=== PATIENT | female | born 1960 | race Caucasian/White ===

== ENCOUNTER 2022-09-29 12:42 | Emergency (ER) | payer BC, SELFPAY ==
[2022-09-29 12:43] VITALS: BP 146/84; PULSE 90; RESP 18; TEMP 36.3; O2SAT 100; BMI 21.9
--- NOTE | 2022-09-29 13:21 | CT_ITS ---
STUDY: CT ABDOMEN AND PELVIS WITH CONTRAST REASON FOR EXAM: Female, 62 years old. One week history of worsening left lower quadrant pain. RADIATION DOSAGE (If Supplied By Facility): CTDIvol = ( 9.20 ) mGy, DLP = ( 402.16 ) mGycm TECHNIQUE: Transaxial images were obtained from the dome of the diaphragm to the symphysis pubis without oral contrast. IV 100mL Isovue-300 was administered. Sagittal and coronal images were reconstructed. Individualized dose optimization techniques were used for this CT. COMPARISON: None. FINDINGS: Mild increased linear markings at the left lung base suggestive of linear atelectasis or scarring. The visualized portions of the heart are within normal limits. Normal liver. The patient is status post cholecystectomy. Normal spleen. Normal pancreas. Normal bilateral adrenal glands. There is a 1.4 cm cyst in the inferior lateral aspect of the right kidney. There is a 3.4 cm x 1.9 sinus septate cyst in the superior midportion of the left kidney. There is a small hiatal hernia. Normal small intestine. There are multiple colonic diverticula consistent with diverticulosis. There is non-visualization of the appendix. Normal abdominal aorta. Normal inferior vena cava. Normal retroperitoneum. Normal urinary bladder. There is absence of the uterus consistent with a prior hysterectomy. There is a small umbilical hernia containing fat. Normal osseous structures. CT/Abdomen/Pelvis W IV Cont ONLY IMPRESSION: Status post cholecystectomy and hysterectomy. Sigmoid diverticulosis without radiographic abnormality of diverticulitis at this time. Small bilateral renal cysts. Electronically Signed: Weston Naqvi MD at 14:31 EDT ,
--- NOTE | 2022-09-29 13:24 | ED.VIS.GI ---
HPI HPI - GI History of Present Illness Chief Complaint: Abd Pain Informant: patient Narrative Narrative: Patient presents with abdominal pain. Patient states that last week she had some mild discomfort in the lower abdomen off and on. It was nonspecific and variable and she did not think much about it. Tuesday she had a bowel movement that had a little bit of blood in it. She had a few specks in the stool and the water was slightly pink. This has not recurred. She is not on blood thinners. But she has noticed a little bit more discomfort at the left lower quadrant mostly when she is bending or moving. She denies nausea vomiting fevers or chills. She denies urinary symptoms. Her last colonoscopy was about a year ago that did show diverticular disease and she was treated once for diverticulitis. She had an upper endoscopy just within the last week that showed some mild gastritis and hiatal hernia and she was started on Pepcid. She is not having any upper abdominal pain at all. Prior surgeries include hysterectomy and cholecystectomy. [facility] Medical History Asthma Diverticulosis Essential hypertension GERD (gastroesophageal reflux disease) Pure hypercholesterolemia Tinnitus Varicose vein of leg Home Medications Gómez's wort 300 mg tablet 600 mg PO DAILY 06/08/22 [History Last Taken Unknown] albuterol sulfate 90 mcg/actuation aerosol inhaler (ProAir HFA) 2 puff inhalation Q6H PRN 06/08/22 [History Last Taken Unknown] calcium carbonate 333 mg-magnesium oxide 133 mg-zinc gluc 5 mg tablet 3 tab PO DAILY 06/08/22 [History Last Taken Unknown] cranberry 400 mg capsule 400 mg PO DAILY 06/08/22 [History Last Taken Unknown] famotidine 10 mg tablet (Pepcid AC) 10 mg PO BID PRN 06/08/22 [History Last Taken Unknown] lactobacillus combination no.9 4 billion cell capsule (Adult 50 Plus Probiotic) 4,000 mmu cells PO DAILY 06/08/22 [History Last Taken Unknown] loratadine 10 mg tablet (Claritin) 10 mg PO DAILY 06/08/22 [History Last Taken Unknown] ascorbic acid (vitamin C) 500 mg tablet 500 mg PO DAILY 06/10/22 [History Last Taken Unknown] budesonide-formoterol HFA 80 mcg-4.5 mcg/actuation aerosol inhaler (Symbicort) 2 puff inhalation BID PRN 06/10/22 [History Last Taken Unknown] zinc gluconate 50 mg tablet 50 mg PO DAILY 06/10/22 [History Last Taken Unknown] metoprolol succinate 25 mg tablet,extended release 24 hr 12.5 mg PO .COMPLEX #90 tabs 07/30/22 [Rx Last Taken Unknown] Allergy/AdvReac Type Severity Reaction Status Date / Time esomeprazole [From Nexium] Allergy Unknown Hives Verified 09/29/22 13:06 Sulfa (Sulfonamide Allergy Rash Verified 09/29/22 13:06 Antibiotics) Family History Father CAD (coronary artery disease) Hypertension Mother Hypertension Brother Hypertension Sister Diabetes Hypertension Surgical History History of cholecystectomy History of hysterectomy with bilateral oophorectomy History of varicose vein ligation and stripping Social History Smoking Status: Never smoker alcohol intake: never substance use type: does not use caffeine: Yes Type: coffee Number of servings: 1 ROS ROS ED ROS Narrative A complete review of systems was performed and is negative except as documented in the history of present illness. Some specific details below. Constitutional: No recent fevers or chills. EYE: No visual complaints or pain. ENT: No difficulty swallowing. No swelling. No pain. CV: No chest pain or palpitations. Respiratory: No dyspnea. No hemoptysis. No difficulty taking breaths. GI: Please see history of present illness. She is eating and drinking well without nausea or vomiting. : No frequency dysuria or hematuria. Musculoskeletal: No recent trauma. No pains. No back or flank pains. Skin: No rash. Nondiaphoretic. Neuro: No weakness or numbness. Endocrine: No polyuria or polydipsia. EXAM Physical Exam Narrative Exam Narrative: CONSTITUTIONAL: Patient is nontoxic in appearance. The patient looks comfortable. HEENT: No notable trauma. Mucous membranes moist. No sinus tenderness. No indication of pain with swallowing. EYES: No conjunctival injection. No proptosis. CARDIOVASCULAR: Regular rate. Regular rhythm. No notable murmur. No JVD. RESPIRATORY: No respiratory distress. Breathing is unlabored. No wheezes. No rhonchi. No rales. No pain with a deep breath. GASTROINTESTINAL: Not distended. Bowel sounds are normal. There is some mild left lower quadrant tenderness but no mass and no guarding. No rebound. No bruit. GENITOURINARY: No tenderness over the bladder. No CVA tenderness. MUSCULOSKELETAL: Atraumatic. No peripheral edema. No cord. NEUROLOGICAL: Patient is alert and appropriate. No focal deficit noted. SKIN: No noted rashes. No diaphoresis. PSYCHIATRIC: Patient is calm. Mood is appropriate. Const Vital Signs: 09/29/22 12:43 Temperature 97.3 F L Temperature Source Temporal Pulse Rate 90 Respiratory Rate 18 Blood Pressure 146/84 H Blood Pressure Mean 104 Pulse Ox 100 Oxygen Delivery Method Room Air MDM MDM MDM Narrative Medical decision making narrative: Patient CBC is normal other than minimal elevation of the hemoglobin. Her electrolytes are normal including glucose urinalysis shows no sign of infection. My independent interpretation of her CT of the abdomen shows no sign of obstruction ileus or diverticulitis. Final reading showed diverticulosis without radiographic abnormality of diverticulitis at this time. They did note prior cholecystectomy hysterectomy and some renal cysts. I rechecked the patient. I explained that it certainly possible this could be very mild diverticulitis that does not show up. But that would be treatable with liquid diet and slow progression. She understands this. I do not think she needs antibiotic or any other meds and she is comfortable with this plan. We did discuss following up or returning here with worsening pain, vomiting, fevers, blood in the stools or other symptoms. Lab Data Attestation: I reviewed the patient's lab results. Labs: Laboratory Results - last 24 hr 09/29/22 09/29/22 09/29/22 13:10 13:10 13:30 WBC 5.9 RBC 5.07 Hgb 15.3 H Hct 45.2 MCV 89.2 MCH 30.2 MCHC 33.8 RDW Std Deviation 42.0 RDW Coeff of Jose 13.0 Plt Count 173 MPV 10.5 Immature Gran % (Auto) 0.500 Neut % (Auto) 75.1 H Lymph % (Auto) 18.3 L Hand % (Auto) 5.4 Eos % (Auto) 0.2 Baso % (Auto) 0.5 Absolute Neuts (auto) 4.4 Absolute Lymphs (auto) 1.08 Nucleated RBC % 0 Sodium 143 Potassium 3.9 Chloride 106 Carbon Dioxide 28.0 Anion Gap 9 BUN 11 Creatinine 0.81 Estim Creat Clear Calc 67.41 Est GFR (MDRD) Af Amer 92 Est GFR (MDRD) Non-Af 76 BUN/Creatinine Ratio 13.5 Glucose 101 Calcium 9.1 Urine Color Yellow Urine Clarity Clear Urine pH 6.5 Ur Specific [place] 1.010 Urine Protein Negative Urine Glucose (UA) Normal Urine Ketones Negative Urine Occult Blood 10 H Urine Nitrite Negative Urine Bilirubin Negative Urine Urobilinogen Normal Ur Leukocyte Esterase Negative Urine RBC 0-5 SEEN Urine WBC 0 SEEN Ur Squamous Epith Cells 0-5 SEEN Urine Bacteria 0 SEEN Urine Mucus 0 SEEN Radiography Diagnostic Testing: Clinical Impression(s) from Imaging Studies Abdomen/Pelvis CT 09/29/22 13:21 IMPRESSION: Status post cholecystectomy and hysterectomy. Sigmoid diverticulosis without radiographic abnormality of diverticulitis at this time. Small bilateral renal cysts. Electronically Signed: Weston Naqvi MD at 14:31 EDT , Discharge Plan Triage Chief Complaint: Abd Pain ED Provider: Dylon Salazar Dx/Rx/DC Orders Clinical Impression: Left lower quadrant abdominal pain, Diverticulosis Instructions: ED Abdominal Pain Unkn Cause Fem, ED Diverticulosis Prescriptions: No Action ascorbic acid (vitamin C) 500 mg tablet 500 mg PO DAILY zinc gluconate 50 mg tablet 50 mg PO DAILY calcium carb-mag ox-zinc gluc 333-133-5 mg tablet 3 tab PO DAILY loratadine [Claritin] 10 mg tablet 10 mg PO DAILY cranberry 400 mg capsule 400 mg PO DAILY Rx Instructions: administer with a meal Gómez's wort 300 mg tablet 600 mg PO DAILY famotidine [Pepcid AC] 10 mg tablet 10 mg PO BID PRN albuterol sulfate [ProAir HFA] 90 mcg/actuation HFA aerosol inhaler 2 puff inhalation Q6H PRN Adult 50 Plus Probiotic 4 billion cell capsule 4,000 mmu cells PO DAILY Rx Instructions: administer with a meal budesonide-formoterol [Symbicort] 80-4.5 mcg/actuation HFA aerosol inhaler 2 puff inhalation BID PRN metoprolol succinate 25 mg tablet extended release 24 hr 12.5 mg PO .COMPLEX Qty: 90 3RF Rx Instructions: 12.5 mg orally daily: may take an extra 1/2 tablet if HR is > 110; Primary Care Provider: Amarilis Dalton Referrals: Amarilis Dalton MD [Primary Care Provider] - 3-5 Days if not improving Disposition Disposition: Home, Self Care
[2022-09-29 13:36] LABS: Bacteria 0 SEEN /hpf (None Seen); Mucous, Urine 0 SEEN /hpf (<or=2+); White Blood Cells 0 SEEN /hpf (0-5)
[2022-09-29 13:40] LABS: Absolute Lymphocyte Count 1.08 X10^3/uL (0.83-4.51); Absolute Neutrophil Count 4.4 X10^3/uL (2.0-7.7); Basophil# 0.03 X10^3/uL; Basophil% 0.5 % (0-1); Eosinophil# 0.01 X10^3/uL; Eosinophils% 0.2 % (0-5); Hematocrit 45.2 % (37-47); Hemoglobin 15.3 g/dL (12.0-15.0); Lymphocyte # 1.08 X10^3/ul (0.83-4.51); Lymphocyte % 18.3 % (19-41); Mean Corp Hgb Conc 33.8 g/dL (32-36); Mean Corpuscular Hgb 30.2 pg (27.0-32.0); Mean Corpuscular Volume 89.2 fL (81-99); Mean Platelet Vol. 10.5 fl (6.2-12.0); Monocyte# 0.32 X10^3/uL; Monocyte% 5.4 % (0-10); NRBC Flagged by Analyzer 0 % (0-5); Neutrophil # 4.42 X10^3/uL (2.7-7.7); Neutrophil % 75.1 % (47-70); Platelet Count 173 K/mm3 (150-450); Red Blood Count 5.07 M/mm3 (4.2-5.4); White Blood Count 5.9 K/mm3 (4.4-11.0)
[2022-09-29 13:43] LABS: Color, Urine Yellow (Yellow); Glucose, Dipstick Normal (Normal); Ketone-Dipstick Negative (Negative); Leukocyte Esterase-Dipstick Negative /ul (Negative); Nitrite-Dipstick Negative (Negative); Occult Blood-Urine 10 /ul (Negative); Protein-Dipstick Negative (Negative); Urine Bilirubin Dipstick Negative (Negative); Urine Clarity Clear (Clear); Urine Urobilinogen Normal (Normal); Urine pH 6.5 (5.0 - 8.0)
[2022-09-29 13:53] LABS: Anion Gap 9 (5-15); BUN 11 mg/dL (7-18); BUN/Creat Ratio 13.5 RATIO (10-20); Calcium,Total 9.1 mg/dL (8.5-10.1); Chloride 106 mmol/L (98-107); Creatinine, Serum 0.81 mg/dL (0.55-1.02); EST Glomerular Filtration Rate 76 mL/min (>60); Est Glom Filt Rate - Afr Amer 92 mL/min (>60); Estimated Creatinine Clearance 67.41 ml/min; Glucose 101 mg/dL (74-106); Potassium 3.9 mmol/L (3.5-5.1); Sodium Level 143 mmol/L (136-145)
[2022-09-29 14:03] LABS: Red Blood Cells-Urine 0-5 SEEN /hpf (0-5); Squamous Epithelial Cells - UA 0-5 SEEN /hpf (5-10)
== END 2022-09-29 14:54 | disposition home or self-care (01) ==
PROVIDERS: Emergency Provider Emergency Medicine; PCP Internal Medicine; Visit Provider Emergency Medicine
DX: R10.32 Left lower quadrant pain (principal); K44.9 Diaphragmatic hernia without obstruction or gangrene; K57.90 Diverticulosis of intestine, part unspecified, without perforation or abscess without bleeding; K29.70 Gastritis, unspecified, without bleeding; E78.00 Pure hypercholesterolemia, unspecified; I10 Essential (primary) hypertension
CPT/HCPCS: 74177; 80048; 81001; 85025; 99283; J7040; Q9967; A4216